=== PATIENT | female | born 1960 | race African-American/Black ===

== ENCOUNTER 2017-01-18 07:28 | Day surgery (SDC) | payer BC, MEDICARE ==
--- NOTE | ~2017-01-18 | EGD ---
EGD REPORT [facility] [address] [place] [address] NAME: KETTY MORLEY : [birth year] STATUS : REG [facility] PAT#: [id number] AGE: 56 ADM/REG DATE : 01/18/17 MR#: [id number] REPORT SERV DATE: 01/18/17 DICTATED BY: BLANCO PACHECO DATE: 01/18/17 REPORT STATUS : Draft TRANSCRIBED BY: [facility] DATE: 01/18/17 Endoscopy Center Patient Name: Ketty Morley Date of : 1960 Attending MD: BLANCO PACHECO MD Procedure Date No Time: 01/18/2017 Procedure: Upper GI endoscopy Indications: Esophageal reflux Referring MD: CIRO RENAE Medicines: Monitored Anesthesia Care Complications: No immediate complications. Procedure: Pre-Anesthesia Assessment: - ASA Grade Assessment: II - A patient with mild systemic disease. After obtaining informed consent, the endoscope was passed under direct vision. Throughout the procedure, the patient's blood pressure, pulse, and oxygen saturations were monitored continuously. The GIF H190 [id number] was introduced through the mouth, and advanced to the second part of duodenum. The upper GI endoscopy was accomplished without difficulty. The patient tolerated the procedure well. Findings: Localized mild erythema was found at the gastroesophageal junction. Biopsies were taken with a cold forceps for histology. A few small sessile polyps with no stigmata of recent bleeding were found in the gastric body. The polyp was removed with a cold biopsy forceps. Resection and retrieval were complete. The cardia and gastric fundus were normal on retroflexion. The duodenal bulb and 2nd part of the duodenum were normal. Impression: - Erythema at the gastroesophageal junction. Biopsied. - A few gastric polyps. Resected and retrieved. - Normal duodenal bulb and 2nd part of the duodenum. Recommendation: - Await pathology results. - Follow an antireflux regimen. Procedure Code(s): --- Professional --- 57384, Esophagogastroduodenoscopy, flexible, transoral; with biopsy, single or multiple Diagnosis Code(s): --- Professional --- K22.9, Disease of esophagus, unspecified EGD REPORT [facility] [address] [place], [place] [address]. [address] NAME: KETTY MORLEY : [birth year] STATUS : REG [facility] PAT#: [id number] AGE: 56 ADM/REG DATE : 01/18/17 MR#: [id number] REPORT SERV DATE: 01/18/17 DICTATED BY: BLANCO PACHECO DATE: 01/18/17 REPORT STATUS : Draft TRANSCRIBED BY: [employer] DATE: 01/18/17 K31.7, Polyp of stomach and duodenum K21.9, Gastro-esophageal reflux disease without esophagitis CPT copyright 2013 [employer]. All rights reserved. The codes documented in this report are preliminary and upon bone density technician review may be revised to meet current compliance requirements. BLANCO PACHECO MD 01/18/2017 9:15 AM This report has been signed electronically. Number of Addenda: 0 Note Initiated On: 01/18/2017 9:01 AM Scope Withdrawal Time 0 hours 0 minutes 0 seconds [address] [facility] [place] [address]
--- NOTE | ~2017-01-18 | EGD ---
EGD REPORT [facility] [address] [address] NAME: KETTY MORLEY : 58 STATUS : REG [facility] PAT#: [id number] AGE: 56 ADM/REG DATE : 01/18/17 MR#: [id number] REPORT SERV DATE: 01/18/17 DICTATED BY: BLANCO PACHECO DATE: 01/18/17 REPORT STATUS : Draft TRANSCRIBED BY: [facility] DATE: 01/18/17 Endoscopy Center Patient Name: Ketty Molrey Date of : 1960 Attending MD: BLANCO PACHECO MD Procedure Date No Time: 01/18/2017 Procedure: Colonoscopy Indications: Screening for colorectal malignant neoplasm Referring MD: CIRO RENAE Medicines: Monitored Anesthesia Care Complications: No immediate complications. Procedure: Pre-Anesthesia Assessment: - ASA Grade Assessment: II - A patient with mild systemic disease. After I obtained informed consent, the scope was passed under direct vision. Throughout the procedure, the patient's blood pressure, pulse, and oxygen saturations were monitored continuously. The PCF [id number] was introduced through the anus and advanced to the terminal ileum, with identification of the appendiceal orifice and IC valve. The colonoscopy was performed without difficulty. The patient tolerated the procedure well. The quality of the bowel preparation was good. Findings: The digital rectal exam was normal. Pertinent negatives include no palpable rectal lesions. A sessile polyp was found in the rectum. The polyp was 3 mm in size. The polyp was removed with a cold biopsy forceps. Resection and retrieval were complete. Hemorrhoids were found during retroflexion and were mild. Diverticula were found in the sigmoid colon and in the descending colon. The terminal ileum appeared normal. Impression: - One 3 mm polyp in the rectum. Resected and retrieved. - Hemorrhoids. Recommendation: - Patient has a contact number available for emergencies. The signs and symptoms of potential delayed complications were discussed with the patient. Return to normal activities tomorrow. Written discharge instructions were provided to the patient. - Regular diet. - Continue present medications. - Await pathology results. EGD REPORT [address] [address] NAME: KETTY MORLEY : 58 STATUS : REG [facility] PAT#: [id number] AGE: 56 ADM/REG DATE : 01/18/17 MR#: [id number] REPORT SERV DATE: 01/18/17 DICTATED BY: BLANCO PACHECO DATE: 01/18/17 REPORT STATUS : Draft TRANSCRIBED BY: [employer] DATE: 01/18/17 - Repeat colonoscopy in 5-10 years for surveillance based on pathology results. - Return to GI clinic PRN. Procedure Code(s): --- Professional --- 19882, Colonoscopy, flexible, proximal to splenic flexure; with biopsy, single or multiple Diagnosis Code(s): --- Professional --- K62.1, Rectal polyp K64.9, Unspecified hemorrhoids Z12.11, Encounter for screening for malignant neoplasm of colon CPT copyright 2013 [employer]. All rights reserved. The codes documented in this report are preliminary and upon furniture polisher review may be revised to meet current compliance requirements. BLANCO PACHECO MD 01/18/2017 9:34 AM This report has been signed electronically. Number of Addenda: 0 Note Initiated On: 01/18/2017 8:57 AM Scope Withdrawal Time 0 hours 8 minutes 18 seconds
[~2017-01-18 07:28] MED LIST: COZ25 PO; ENDOCET1 TA3 PO; FIORICET 50-301 EACH PO; HYZAAR 100/25 T1 TAB PO; IBU600 PO; NEUR100 PO; NOR10 PO; PRILOSEC40 MG PO; SENTAB PO; ULTRAM ER300 MG PO
== END 2017-01-18 23:59 | disposition home health service (06) ==
LOC: DMU 07:28
PROVIDERS: Internal Medicine Gastroenterology
PROC: 0DBP8ZX Excision of Rectum, Via Natural or Artificial Opening Endoscopic, Diagnostic (ICD-10-PCS; 2017-01-18)
PROC: 0DB48ZX Excision of Esophagogastric Junction, Via Natural or Artificial Opening Endoscopic, Diagnostic (ICD-10-PCS; principal; 2017-01-18 09:00)
PROC: 0DB68ZX Excision of Stomach, Via Natural or Artificial Opening Endoscopic, Diagnostic (ICD-10-PCS; 2017-01-18 09:00)
DX: Z12.11 Encounter for screening for malignant neoplasm of colon (principal); K31.7 Polyp of stomach and duodenum; K62.1 Rectal polyp; K64.9 Unspecified hemorrhoids; G43.909 Migraine, unspecified, not intractable, without status migrainosus; I10 Essential (primary) hypertension; J45.909 Unspecified asthma, uncomplicated; G47.30 Sleep apnea, unspecified; K21.9 Gastro-esophageal reflux disease without esophagitis; Z99.81 Dependence on supplemental oxygen; Z88.8 Allergy status to other drugs, medicaments and biological substances; Z88.0 Allergy status to penicillin; Z88.5 Allergy status to narcotic agent
CPT/HCPCS: 88305